=== PATIENT | female | born 1990 | race Caucasian/White ===

== ENCOUNTER 2020-08-11 21:55 | Inpatient (IN) | payer OTHER ==
--- NOTE | 2020-08-11 22:05 | NUR ---
G1 at 40 weeks and 4 days arrives to unit with complaint of spontaneous rupture of membranes around 2100. Pt reports having contractions every 3-4 minutes. Denies vaginal bleeding and reports good movement. Pt denies problems this . Clean gown on. Oriented to room, bed in low and locked position, call light within reach. US and toco explained and applied. Admission assessment started. Vital signs obtained. Pt appears to be grossly ruptured on exam. Amnitrace positive. SVE /-3.
[2020-08-11 22:30] VITALS: BP 142/93; PULSE 84; TEMP 97.9
--- NOTE | 2020-08-11 22:40 | NUR ---
18B IV started in left forearm with 1 attempt. Admission labs obtained off IV start. Lactated ringers infusing to gravity.
--- NOTE | 2020-08-11 22:50 | NUR ---
Late FHR deceleration down to 80 bpm starting at 2248. Pt repositioned to right lateral. Lactated Ringers bolus started. O2 applied at 10L. Pt then positioned to left lateral followed by hands and knees with improvement to FHR at 2253 with baseline of 120 bpm.
[2020-08-11 22:58] LABS: BASO % 0.2 % (0.0-2.0); EOS % 0.1 % (0-4.0); GRAN # 15.5 (1.4-6.5); GRAN % 87.5 % (42.2-75.2); HEMATOCRIT 41.9 % (37.0-47.0); HEMOGLOBIN 14.6 g/dl (12.5-16.0); LYMPH # 1.1 (1.2-3.4); LYMPH % 6.1 % (20.0-51.0); MEAN CELL VOLUME 91 fl (80.0-100.0); MEAN CORPUSCULAR HEMOGLOBIN 32 pg (27.0-31.0); MEAN CORPUSCULAR HGB CONC 35 g/dl (33.0-37.0); MEAN PLATELET VOLUME 9.6 fl (7.4-10.4); MONO % 5.5 % (1.7-9.3); PLATELET COUNT 282 K/mm3 (130-400); RED BLOOD COUNT 4.63 M/mm3 (4.10-5.30); REDCELL DISTRIBUTION WIDTH-CV 12.4 % (11.5-14.5)
[2020-08-11 23:00] VITALS: BP 152/98; PULSE 86
[2020-08-11 23:30] VITALS: BP 142/87; PULSE 73
[2020-08-11 23:45] VITALS: BP 109/56; PULSE 75
[2020-08-12] VITALS (23 sets, daily range): BP systolic 100–160; BP diastolic 55–99; PULSE 63–133; TEMP 97.5–98.2
--- NOTE | 2020-08-12 01:12 | NUR ---
0113- FHR DECELERATION NOTED FROM BASELINE OF 125 DOWN TO 70S. Ladarius [place] AND Alexandria GILLETTE TO BEDSIDE. 0114- SVE REVEALS PATIENT IS 8 CENTIMETERS. LR BOLUS STARTED AND 02 PLACED ON MOM AT 10L. 0115- FSE PLACED AND FHR IN THE 50S AND NOT COMING UP WITH SCALP STIM. 0116- PATIENT PLACED IN KNEE CHEST. FHR IN THE 60S AND 70S. 0117- DR. HARKINS CALLED AND NOTIFIED OF CURRENT SITUATION, SEE PHYISICAN NOTIFICATION. 0118- PATIENT PLACED IN LEFT LATERAL POSITION. FHR IN 80'S AND 90S WITH SPIKES UP TO LOW 100S. 0121- PATIENT PLACED IN RL POSITION. FHR TRENDING UPWARD IN THE 90'S TO 105 RANGE. AT THIS POINT PATIENT WAS PREPPED FOR POTENTIAL . PATIENT CLIPPED AND PREPPED AND FATHER GIVEN OR GEAR TO WEAR. 0122- COLEMAN EMPTIED AND FHR TRACING IN 110. 0123- FHR TRENDING BACK TO BASELINE OF 120 RANGE. THIS RN REMAINS AT BEDSIDE WITH PATIENT MONITORING FHR TRACING. 0125- DR. HARKINS ON UNIT AND REVIEWING STRIP FHR WAS NOW STABLE AND BACK TO BASELINE OF 120-125. 0134- THIS RN LEFT ROOM TO GO DISCUSS WITH PROVIDER ABOUT STRIP. PATIENT AND FHR STABLE. FHR TRACING 125. PATIENT DENIES NEEDS AND CALL LIGHT WITHIN REACH.
--- NOTE | 2020-08-12 02:29 | NUR ---
0229- FHR TRACING HAVING MARKED VARIABILITY THAT WAS DECELERATING DOWN TO THE 70'S. 0230- DR. HARKINS AND RN'S TO BEDSIDE. PATIENT COMPLETE. PREPPED PATIENT AND ROOM FRO DELIVERY. CALLED AND NOTIFIED STAFF NEEDED. 0233- COLEMAN REMOVED WITH 375 OUTPUT NOTED. 0235- PATIENT PLACED IN FOOTPLATES AND PUSHING EXPLAINED AND DISCUSSED WITH PROVIDER. 0237- FIRST PUSH. FHR STILL TRACING IN THE 90'S WITH MARKED VARIABILITY DURING PUSHING. 0240- PROVIDER DISCUSSED PLACING VACUUM AND PLACED ON HEAD. 0241- GREEN PRESSURE NOTED ON VACUUM. PATIENT BEGINS PUSHING WITH VAC HELP. 0242- FIRST POP OFF. PROVIDER DISCUSSED DOING AN EPISOTOMY AND DID THIS FOR THE PATIENT WITH THEIR CONSENT. VACUUM PLACED BACK ON HEAD 0243- GREEN PRESSURE NOTED ON VACUUM AND PATIENT PUSHES AGAIN. 0243- VAVD OF VIABLE FEMALE INFANT. PLACED TO MOTHER ABDOMEN. CORD GASSES DONE BY PROVIDER AND SENT OFF. NURSERY NURSE ASSUMES CARE AT THIS TIME. PITOCIN HOOKED UP TO PATIENT AND PROGRAMMED TO 333ML/HR FOR WHEN PLACENTA DELIVERS. 0250- OF PLACENTA. PITOCIN STARTED AT 333ML/HR PER PROTOCOL. FUNDUS MASSAGED TO FIRM BY PROVIDER WITH MODERATE BLEEDING NOTED. 2ND DEGREE TEAR NOTED AND REPAIRED BY PROVIDER. 0300- REPAIRS FINISHED. FUNDUS FIRM AND DOWN 2 WITH SMALL AMOUNT OF LOCHIA NOTED. VITALS STABLE. PATIENT CLEANED UP AND NEW CHUX, PERIPAD AND ICEPACK PLACED UNDER PATIENT. EBL NOTED TO BE 200 BY PROVIDER. RECOVERY STARTED.
[2020-08-12] MEDS ORDERED: PRENATAL TABLET PO (05:07)
[2020-08-12] MEDS ORDERED: GLUCOSAMIN 500 (05:08)
[2020-08-12] MEDS ORDERED: OMEGA-3 1000 MG1 CAP PO (05:08)
[2020-08-12] MEDS ORDERED: CALCIUM 600 PLU1 TAB PO (05:08)
[2020-08-13 02:11] VITALS: BP 129/79; PULSE 79; TEMP 98.3
[2020-08-13 07:40] VITALS: BP 120/80; PULSE 88; TEMP 97.9
[2020-08-13] MEDS ORDERED: IBU800 M1 PO (09:31)
== END 2020-08-13 12:30 | disposition home or self-care (01) | DRG 807 ==
LOC: LDRO 21:55 → OB 22:30 → LDR 22:30 → OB 08-12 06:00
PROVIDERS: Student in an Organized Health Care Education/Training Program; ADMIT Obstetrics & Gynecology
PROC: 10D07Z6 Extraction of Products of Conception, Vacuum, Via Natural or Artificial Opening (ICD-10-PCS; principal; 2020-08-11)
PROC: 0W8NXZZ Division of Female Perineum, External Approach (ICD-10-PCS; 2020-08-11)
DX: O48.0 Post-term pregnancy (principal); Z37.0 Single live birth; O99.344 Other mental disorders complicating childbirth; F41.9 Anxiety disorder, unspecified; O76 Abnormality in fetal heart rate and rhythm complicating labor and delivery; O43.893 Other placental disorders, third trimester; Z3A.40 40 weeks gestation of pregnancy
CPT/HCPCS: J2590; J2795; J7120

== ENCOUNTER → 2020-08-23 | Outpatient (CLI) | payer OTHER ==
[~2020-08-23] MED LIST: CALCIUM 600 PLU1 TAB PO; GLUCOSAMIN 500; IBU800 M1 PO; OMEGA-3 1000 MG1 CAP PO; PRENATAL TABLET PO
--- NOTE | 2020-08-23 15:38 | NUR ---
Pt, Shannan Dunlap, presents for outpatient consult with 11 day old baby girl, Sherly Dunlap. Shannan reports Sherly has < 4 stools per day and wants to ensure Sherly is gaining weight and eating adequately. Sherly was born on [birth year] and weighed 8#1.5oz (3670 gms). Discharge weight the following day was 7#11oz. Pt reports Sherly weighed 7#12oz at her first doctor visit on 08/17/20. Today Sherly weighs 8#1.4oz (3667 gms). Pt reports Sherly eats at least every 3 hours, some times more often on demand. She has qs voids, but only 2 "real" stools per day. Pt uses the Haaka to collect leaking milk during let-down and reports getting about 1oz per feeding. Sherly was fussy during the admission process so pt had to nurse one breast prior to our consult. After nursing on the right side Sherly had a weight gain of 1.1oz (32 gms) and the left a gain of 0.2oz (6 gms). Initially Sherly appeared content, but after dressing and being placed in the car seat she was rooting and acting like she was still hungry. Because Sherly has demonstrated an adequate weight gain over the last 6 days, pt was not advised to supplement, but to not use the Haaka and press in on the nipple to avoid leaking with let-down. Also to feed every 2 hours in the daytime and 3 hours at noc. Pt also advised to check in with her local health department ([facility]) for a weekly weight check. If this was not possible, she should schedule a weight check with Dr. Mcintosh or this next week. Pt has many, many first time parent questions that were address. POC: Increase feed frequency. F/U: Next week weight check at [facility] or this [facility].
== END ==
LOC: LAC 15:05
DX: Z39.1 Encounter for care and examination of lactating mother (principal); Z71.89 Other specified counseling